=== PATIENT | male | born 1955 | race Caucasian/White ===

== ENCOUNTER 2016-09-10 16:46 | Emergency (ER) | payer OTHER ==
[2016-09-10 16:58] VITALS: TEMP 97.7; O2SAT 95
[2016-09-10] MEDS ORDERED: TDAP ADULT 0.5 ML INJ (BOOSTRIX) IM ONE (17:26)
--- NOTE | 2016-09-10 17:27 | EDPHY ---
H & P Time Seen by Provider: 09/10/16 16:57 HPI/ROS: HPI Left thumb injury. 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 He was wearing eye protection but not clothes. He slipped and lacerated his left thumb, radial distal aspect. No other injury or complaint. He does not know when his last tetanus shot was. ROS: Constitutional: No fever, no chills. No weakness. Musculoskeletal: Left thumb pain. Skin: No rashes. Laceration as above. Neurological: No focal weakness or altered sensation. Past medical history: Denies. Social history: Nonsmoker. No alcohol. Here with his . He is a part- time nurse. Physical Exam: General Appearance: Alert, no distress. This patient is responding to questions appropriately and in full sentences. This patient appears well- hydrated and well-nourished. Eyes: Pupils equal and round no pallor or injection. No lid edema, erythema or injection. Left hand exam/left thumb exam: Significant for a linear laceration, radial aspect distal thumb at the nail margin. 2.0 cm in length. No articular involvement. No tendon involvement. The left thumb is neurovascularly intact. Please see wound care note for further details. Neurological: Motor sensory function is grossly intact. Cranial nerves are normal. Gait is normal. Skin: Warm and dry, no rashes. Musculoskeletal: As above. Extremities are symmetrical. All joints range without pain or impingement. Psychiatric: No agitation. No depression. Database: EKG: Imaging: Left thumb x-ray series: Negative for fracture, subluxation, dislocation. No radiopaque foreign body identified. Interpreted by me. Procedures: Procedure: Laceration repair. Verbal consent was obtained from the patient. The 2 cm laceration on the distal thumb was anesthetized in the usual fashion with digital block using 0.5 % bupivacaine without epinephrine. The wound was irrigated, draped and explored to its base with a gloved finger. There were no deep structures involved. No tendon injury was identified. No foreign body was identified on exploration. The wound was repaired with 5, 5.0 Prolene sutures placed in interrupted fashion. The wound repair was tolerated well and there were no complications. The procedure was performed by myself. Emergency department course: After suture repair as above, wound care was discussed with the patient. He is a nurse. He is concerned about infection. Explained this was unlikely. He is asking for an antibiotic. I agreed to send him home with a prescription for Keflex told him to only fill it if he signs of infection which he is familiar with. Otherwise I will send him home with a short course of Vicodin for pain control and instructions on ibuprofen dosing. Return to emergency department precautions were reviewed. All of his questions were answered. Follow-up discussed. He was discharged in good condition. Differential Diagnosis: The differential diagnosis on this patient includes but is not limited to left thumb laceration. Retained foreign body, tendon injury, bony injury unlikely. This represents a partial list of diagnoses considered. These considerations are based on history, physical exam, past history, reassessment and diagnostic testing. Smoking Status: Never smoked Constitutional: Initial Vital Signs Temperature (C) 36.5 C 09/10/16 16:57 Heart Rate 82 09/10/16 16:57 Respiratory Rate 20 09/10/16 16:57 Blood Pressure 140/102 H 09/10/16 16:57 O2 Sat (%) 95 09/10/16 16:57 O2 Delivery Mode Room Air Allergies/Adverse Reactions: No Known Allergies Allergy (Unverified 09/10/16 16:58) Home Medications: Medication Instructions Recorded Ambien PRN 09/10/16 Cephalexin [Keflex (*)] 500 mg PO Q6 5 Days 09/10/16 Medical Decision Making - Diagnostics Imaging Results: Imaging Impressions Finger X-Ray 09/10/16 17:52 Impression: No fracture of the left thumb. - Data Points Medications Given: Discontinued Medications Diphtheria/Tetanus/Acell Pertussis (Boostrix) 0.5 ml IM .ONCE ONE Stop: 09/10/16 17:27 Last Admin: 09/10/16 17:57 Dose: 0.5 ml Departure - Departure Disposition: Home, Routine, Self-Care Clinical Impression: Laceration of left thumb Condition: Good Instructions: Care For Your Stitches (ED), Laceration (ED) Additional Instructions: Read and follow provided instructions. Follow-up with your primary care physician in 1-2 days for re-evaluation as needed for wound check. Stitches are to be removed in 10-12 days. You can return here to have stitches removed. Ibuprofen dosin mg every 6 hours with meals for the next 3 days only. Richey/Percocet dosin-2 every 4-[address] not drive on this medication. Only fill prescription for antibiotic if you see signs of infection as discussed. Return to the emergency department for swelling, bleeding, redness, drainage of pus or other serious concerns. Referrals: VEDA MARTINEZ [Primary Care Provider] - As per Instructions Prescriptions: Cephalexin [Keflex (*)] 500 mg PO Q6 5 Days
[2016-09-10] MEDS ORDERED: HYDROCOD/APAP 5/325 PREPACK#6 BTL TAKEHOME ONE (18:14)
[2016-09-10 18:57] VITALS: BP 135/84; PULSE 80; RESP 16
== END 2016-09-10 18:49 | disposition home or self-care (01) ==
LOC: CED 16:46
PROC: 0HQGXZZ Repair Left Hand Skin, External Approach (ICD-10-PCS; principal; 2016-09-10)
DX: S61.012A Laceration without foreign body of left thumb without damage to nail, initial encounter (principal); Z23 Encounter for immunization; W45.8XXA Other foreign body or object entering through skin, initial encounter
CPT/HCPCS: 73140-PO

== ENCOUNTER 2017-01-17 12:30 | Emergency (ER) | payer OTHER ==
[2017-01-17 12:43] VITALS: TEMP 97.7
--- NOTE | 2017-01-17 13:08 | EDPHY ---
H & P Stated Complaint: herbie x 15 days Time Seen by Provider: 01/17/17 12:52 HPI/ROS: CHIEF COMPLAINT: Diarrhea HISTORY OF PRESENT ILLNESS: The patient is a 61-year-old man who presents to the emergency department complaining of diarrhea for the last 15 days. He states that a month ago he was on clindamycin for a week prior to oral surgery. He still had some infection at the time of the surgery and therefore had amoxicillin for 7 days after the surgery. On the 1st day of taking amoxicillin he began vomiting having fevers chills and diarrhea. The fevers chills and vomiting resolved after about 12 hr but he has had diarrhea ever since for the last 15 days. It is watery green and foul smelling. He complains of lot of flatus as well. He has not been traveling out of the country. He has not drank any unfiltered water. He is able to tolerate p.o. in infectious states that he is hungry. He notices his diarrhea getting worse when he eats high sugar containing foods. He denies abdominal pain. No blood in his stool or vomit. He does not feel dehydrated. He does work in a long-term care facility. REVIEW OF SYSTEMS: Constitutional: denies: chills, fever, recent illness, recent injury EENTM: denies: blurred vision, double vision, nose congestion Respiratory: denies: cough, shortness of breath Cardiac: denies: chest pain, irregular heart rate, lightheadedness, palpitations Gastrointestinal/Abdominal: See HPI Genitourinary: denies: dysuria, frequency, hematuria, pain Musculoskeletal: denies: joint pain, muscle pain Skin: denies: lesions, rash, jaundice, bruising Neurological: denies: headache, numbness, paresthesia, tingling, dizziness, weakness Hematologic/Lymphatic: denies: blood clots, easy bleeding, easy bruising Immunologic/allergic: denies: HIV/AIDS, transplant EXAM: GENERAL: Well-appearing, well-nourished and in no acute distress. HEAD: Atraumatic, normocephalic. EYES: Pupils equal round and reactive to light, extraocular movements intact, sclera anicteric, conjunctiva are normal. ENT: TMs normal, nares patent, oropharynx clear without exudates. Moist mucous membranes. NECK: Normal range of motion, supple without lymphadenopathy or JVD. LUNGS: Breath sounds clear to auscultation bilaterally and equal. No wheezes rales or rhonchi. HEART: Regular rate and rhythm without murmurs, rubs or gallops. ABDOMEN: Soft, nontender, normoactive bowel sounds. No guarding, no rebound. No masses appreciated. BACK: No CVA tenderness, no spinal tenderness, step-offs or deformities EXTREMITIES: Normal range of motion, no pitting or edema. No clubbing or cyanosis. NEUROLOGICAL: Cranial nerves II through XII grossly intact. Normal speech, normal gait. 5/5 strength, normal movement in all extremities, normal sensation PSYCH: Normal mood, normal affect. SKIN: Warm, dry, normal turgor, no visible rashes or lesions. Source: Patient - Personal History Current Tetanus Diphtheria and Acellular Pertussis (TDAP): Yes - Medical/Surgical History Hx Asthma: No Hx Chronic Respiratory Disease: No Hx Diabetes: No Hx Cardiac Disease: No Hx Renal Disease: No Hx Cirrhosis: No Hx Alcoholism: No Hx HIV/AIDS: No Hx Splenectomy or Spleen Trauma: No Other PMH: Denies - Family History Significant Family History: No pertinent family hx - Social History Smoking Status: Never smoked Alcohol Use: Sober Drug Use: None Constitutional: Initial Vital Signs Temperature (C) 36.5 C 01/17/17 12:39 Heart Rate 74 01/17/17 12:39 Respiratory Rate 16 01/17/17 12:39 Blood Pressure 140/81 H 01/17/17 12:39 O2 Sat (%) 94 01/17/17 12:39 O2 Delivery Mode Room Air Allergies/Adverse Reactions: No Known Allergies Allergy (Unverified 01/17/17 12:38) Home Medications: Medication Instructions Recorded Hosea PARMAR 09/10/16 metroNIDAZOLE [Flagyl] 500 mg PO TID #42 tab 01/17/17 Medical Decision Making ED Course/Re-evaluation: The patient has symptoms consistent with mild C diff infection. His abdominal exam is benign. He is slightly dehydrated on clinical exam but is able to easily orally hydrate. He is given a small stool sample here which we will sent to the lab. He does not wish to have IV fluids. Do not think that blood work would be helpful in his diagnosis and clinically he is well appearing. 1:30 p.m. the patient's stool sample was sent to [facility] for testing. I suspect C diff and will write him a prescription for Flagyl. The result will not be back for approximately 3 hr. The patient and his did not wish to wait. They will go home and will call them with the results. If it is C diff he will began taking the Flagyl. If it is not I will have Dr. Vinson call in a different prescription pending the results. Patient is happy with this plan. We discussed indications for returning and expected course. Differential Diagnosis: Partial list of the Differential diagnosis considered include but were not limited to; C difficile, viral infection, and although unlikely based on the history and physical exam, I also considered protozoa infection, diverticulitis , obstruction, ischemia. I discussed these differential diagnoses and the plan with the patient as well as the usual and expected course. The patient understands that the diagnosis is provisional and that in medicine we are not always correct and that further workup is often warranted. Usual and customary warnings were given. All of the patient's questions were answered. The patient was instructed to return to the emergency department should the symptoms at all worsen or return, otherwise to followup with the physician as we discussed. Departure - Departure Disposition: Home, Routine, Self-Care Clinical Impression: Diarrhea Qualifiers: Diarrhea type: unspecified type Qualified Code(s): R19.7 - Diarrhea, unspecified Condition: Fair Instructions: Acute Diarrhea (ED) Referrals: VEDA MARTINEZ [Primary Care Provider] - As per Instructions Stand Alone Forms: Work Excuse Prescriptions: metroNIDAZOLE [Flagyl] 500 mg PO TID #42 tab
[2017-01-17 14:02] VITALS: BP 126/79; PULSE 70; RESP 18; O2SAT 95
== END 2017-01-17 13:51 | disposition home or self-care (01) ==
LOC: CED 12:30
DX: R19.7 Diarrhea, unspecified (principal)